=== PATIENT | male | born 1980 | race Caucasian/White ===

== ENCOUNTER 2018-02-12 23:30 | Emergency (ER) | payer BC ==
[2018-02-13] MEDS ORDERED: ONDANSETRON HCL INJ/PF 4 MG/2 ML SDV IV ONE (00:25)
[2018-02-13] MEDS ORDERED: MORPHINE SULFATE 10 MG/ML INJ IV ONE (00:25)
[2018-02-13 00:34] LABS: ABSOLUTE LYMPHOCYTES (AUTO) 1.4 10^3/uL (0.5-4.7); ABSOLUTE MONOCYTES (AUTO) 0.6 10^3/uL (0.1-1.4); ABSOLUTE NEUT (AUTO) 10.6 10^3/uL (1.7-8.2); BASOPHILS % (AUTO) 0.1 % (0-2); EOSINOPHILS % (AUTO) 0.1 % (0-6); HEMATOCRIT 50.8 % (37.9-51.0); HEMOGLOBIN 17.8 g/dL (13.5-17.0); MEAN CORPUSCULAR HEMOGLOBIN 32.7 pg (27.0-33.4); MEAN CORPUSCULAR VOLUME 93 fl (80-97); MONOCYTES % (AUTO) 5.1 % (3-13); PLATELET COUNT 205 10^3/uL (150-450); RED BLOOD COUNT 5.44 10^6/uL (4.35-5.55); RED CELL DISTRIBUTION WIDTH 12.7 % (11.5-14.0); SEGMENTED NEUTROPHILS % (AUTO) 83.7 % (42-78); TOTAL CELLS COUNTED % (AUTO) 100 %; WHITE BLOOD COUNT 12.7 10^3/uL (4.0-10.5)
--- NOTE | 2018-02-13 00:35 | ER Document Report ---
ED GI/ - General Mode of Arrival: Ambulatory Information source: Patient TRAVEL OUTSIDE OF THE [place] IN LAST 30 DAYS: No <MELA RODRIGUEZ - Last Filed: 02/13/18 02:58> <PEACE SAMSON - Last Filed: 02/13/18 03:46> - General Chief Complaint: Testicular Pain Stated Complaint: TESTICLE PAIN Time Seen by Provider: 02/13/18 00:08 Notes: 37-year-old male that presents to the emergency department today with complaints of sudden onset right testicular pain beginning tonight at 1999. Patient states he feels like the pain radiates from his right testicle up into the right lower quadrant. Patient states he has never had kidney stones in the past. Patient denies any penile discharge or concern for STD. Patient states the pain is making him nauseated and he has vomited. (MELA RODRIGUEZ) - Related Data Allergies/Adverse Reactions: No Known Allergies Allergy (Verified 12/23/11 12:04) Past Medical History - Social History Family History: Reviewed & Not Pertinent Past Surgical History: Reports: Hx Orthopedic Surgery - left foot - Immunizations Hx Diphtheria, Pertussis, Tetanus Vaccination: Yes - 2003 <MELA RODRIGUEZ - Last Filed: 02/13/18 02:58> - Social History Smoking Status: Unknown if Ever Smoked Cigarette use (# per day): No Chew tobacco use (# tins/day): No Family History: Reviewed & Not Pertinent - Medical History Medical History: Negative <PEACE SAMSON - Last Filed: 02/13/18 03:46> Review of Systems - Review of Systems Constitutional: No symptoms reported EENT: No symptoms reported Cardiovascular: No symptoms reported Respiratory: No symptoms reported Gastrointestinal: See HPI, Abdominal pain - RLQ, Nausea, Vomiting Genitourinary: denies: Flank pain Male Genitourinary: See HPI, Testicular pain - Right. denies: Penile discharge Musculoskeletal: No symptoms reported Skin: No symptoms reported Hematologic/Lymphatic: No symptoms reported Neurological/Psychological: No symptoms reported <MELA RODRIGUEZ - Last Filed: 02/13/18 02:58> Physical Exam - Vital signs Interpretation: Normal - General General appearance: Appears well, Alert - HEENT Head: Normocephalic, Atraumatic Eyes: Normal Pupils: PERRL - Respiratory Respiratory status: No respiratory distress Chest status: Nontender Breath sounds: Normal Chest palpation: Normal - Cardiovascular Rhythm: Regular Heart sounds: Normal auscultation Murmur: No - Abdominal Inspection: Normal Distension: No distension Bowel sounds: Normal Tenderness: Nontender Organomegaly: No organomegaly - Genitourinary Inspection: Normal Tenderness: Testicle tender - R. No: Lesions, Epididymis tender Cremasteric reflex: Normal Scrotum: Other - Back Back: Normal, Nontender - Extremities General upper extremity: Normal inspection, Nontender, Normal color, Normal ROM , Normal temperature General lower extremity: Normal inspection, Nontender, Normal color, Normal ROM , Normal temperature, Normal weight bearing. No: Domenico's sign - Neurological Neuro grossly intact: Yes Cognition: Normal Orientation: AAOx4 Mammoth Coma Scale Eye Opening: Spontaneous Jorge A Coma Scale Verbal: Oriented Mammoth Coma Scale Motor: Obeys Commands Jorge A Coma Scale Total: 15 Speech: Normal Motor strength normal: LUE, RUE, LLE, RLE Sensory: Normal - Psychological Associated symptoms: Normal affect, Normal mood - Skin Skin Temperature: Warm Skin Moisture: Dry Skin Color: Normal <PEACE SAMSON - Last Filed: 02/13/18 03:46> - Vital signs Vitals: Temp Pulse Resp BP Pulse Ox 97.0 F 98 18 190/110 H 99 02/12/18 23:38 02/12/18 23:38 02/12/18 23:38 02/12/18 23:38 02/12/18 23:38 Course - Laboratory Result Diagrams: 02/13/18 00:10 02/13/18 00:10 <MELA RODRIGUEZ - Last Filed: 02/13/18 02:58> - Laboratory Result Diagrams: 02/13/18 00:10 02/13/18 00:10 - Diagnostic Test Radiology reviewed: Reports reviewed <PEACE SAMSON - Last Filed: 02/13/18 03:46> - Re-evaluation Re-evalutation: 02/13/18 01:35 Patient updated 02/13/18 02:58 Patient updated and states he is pain free (MELA RODRIGUEZ) Patient is a 37-year-old male who comes in with sudden onset wrist testicular pain that began around 8:00. Ultrasound with no findings of torsion but patient does have a small calcification to follow-up on. More relevant, he is blood in his urine and a CT scan showing a right ureteral stone. This is consistent with symptoms. Patient has been given Zofran, morphine, Toradol for pain. Is completely resolved at this time. He is to follow-up with urology and return if any worsening or concerning symptoms. No evidence for infection. Understands agrees with plan. Stable for discharge. (PEACE SAMSON) - Vital Signs Vital signs: Temp Pulse Resp BP Pulse Ox 98.4 F 87 16 136/87 H 95 02/13/18 03:23 02/13/18 03:23 02/13/18 03:23 02/13/18 03:23 02/13/18 03:23 - Laboratory Laboratory results interpreted by me: 02/13/18 02/13/18 02/13/18 00:10 00:10 00:10 WBC 12.7 H Hgb 17.8 H Seg Neutrophils % 83.7 H Lymphocytes % 11.0 L Absolute Neutrophils 10.6 H Glucose 134 H Urine Protein 30 H Urine Ketones TRACE H Urine Blood LARGE H Discharge <MELA RODRIGUEZ - Last Filed: 02/13/18 02:58> <PEACE SAMSON - Last Filed: 02/13/18 03:46> - Discharge Clinical Impression: Ureteral calculus, right Condition: Stable Disposition: HOME, SELF-CARE Instructions: Kidney Stone ([facility]) Prescriptions: Ondansetron [Zofran Odt 4 mg Tablet] 1 - 2 tab PO Q4HP PRN #20 tab.rapdis PRN Reason: Ketorolac Tromethamine 10 mg PO BIDP PRN #20 tablet PRN Reason: Oxycodone HCl/Acetaminophen [Percocet 5-325 mg Tablet] 1 tab PO ASDIR PRN #15 tab PRN Reason: Forms: Return to Work, Elevated Blood Pressure Referrals: ANDRES SAENZ II, MD [JUNO ZARAGOZA] - Follow up as needed MAXI MARISCAL MD [JUNO ZARAGOZA] - Follow up as needed Scribe Attestation: 02/13/18 03:00 I personally performed the services described in the documentation, reviewed and edited the documentation which was dictated to the scribe in my presence, and it accurately records my words and actions. (PEACE SAMSON) Scribe Documentation - Scribe Written by Scribe:: Kirsty Choi, 02/13/2018 0149 acting as scribe for :: Artur <MELA RODRIGUEZ - Last Filed: 02/13/18 02:58>
[2018-02-13 00:41] LABS: ALANINE AMINOTRANSFERASE 49 U/L (21-72); ALBUMIN 4.9 g/dL (3.5-5.0); ALKALINE PHOSPHATASE 99 U/L (38-126); ANION GAP 15 (5-19); ASPARTATE AMINO TRANSFERASE 31 U/L (17-59); BILIRUBIN,DIRECT 0.3 mg/dL (0.0-0.4); BILIRUBIN,TOTAL 0.8 mg/dL (0.2-1.3); BLOOD UREA NITROGEN 18 mg/dL (7-20); CARBON DIOXIDE 26 mmol/L (22-30); CHLORIDE 100 mmol/L (98-107); GLUCOSE 134 mg/dL (75-110); POTASSIUM 4.5 mmol/L (3.6-5.0); SODIUM 141.1 mmol/L (137-145)
[2018-02-13 00:42] LABS: APPEARANCE,URINE SLIGHTLY-CLOUDY; BILIRUBIN,URINE NEGATIVE (NEGATIVE); COLOR,URINE YELLOW; GLUCOSE, URINE NEGATIVE (NEGATIVE); KETONES,URINE TRACE mg/dL (NEGATIVE); LEUKOCYTE ESTERASE,URINE NEGATIVE (NEGATIVE); NITRITE,URINE NEGATIVE (NEGATIVE); PROTEIN,URINE 30 mg/dL (NEGATIVE); URINE SPECIFIC GRAVITY 1.023; UROBILINOGEN,URINE NEGATIVE mg/dL (<2.0)
[2018-02-13] MEDS ORDERED: KETOROLAC TROMETHAMINE INJ/PF 30 MG/1 ML SDV IV ONE (01:33)
--- NOTE | 2018-02-13 01:38 | RADIOLOGY REPORT (SQ) ---
TESTICULAR ULTRASOUND CLINICAL HISTORY: 37-year-old male with testicular pain. TECHNIQUE: Multiple sonographic images are taken of the testicles using both grayscale and color Doppler. COMPARISON: None. FINDINGS: Right testis: The right testicle measures 2.6 x 3.9 x 2.1 cm. Testicular parenchyma contains a coarse calcification within the mid and lateral chest cysts. Blood flow to the right testis is within normal. The right epididymis 1.1 x 1.3 x 1.4 cm. Hydrocele is demonstrated with a small epididymal appendage versus cyst that measures 2.1 mm. Blood flow to the epididymis is within normal limits. There is no significant varicocele. There is a large hydrocele. Left testis: The left testis measures 3.0 x 4.4 x 2.2 cm The parenchyma is within normal limits. Blood flow is within normal. The left epididymis 1.3 x 1.0 x 1.1 cm. Epididymal cyst is seen measuring 4.1 x 4.0 x 5.4 mm.. Varicocele is demonstrated. There is no significant hydrocele. IMPRESSION: 1. Large right-sided hydrocele. 2. Calcification seen within the right testicular parenchyma. Short-term follow-up is recommended. 3. Bilateral epididymal cysts. 4. Left-sided varicocele.
--- NOTE | 2018-02-13 02:20 | RADIOLOGY REPORT (SQ) ---
EXAM DESCRIPTION: CT ABDOMEN WITHOUT IV CONTRAST COMPLETED DATE/TME: 02/13/2018 01:33 CLINICAL HISTORY: 37 years, Male, stone COMPARISON: None. TECHNIQUE: Axial CT images of the abdomen and pelvis were obtained without contrast. Sagittal and coronal reformats were performed. [facility] 1117 Images stored on PACS. All CT scanners at this facility use dose modulation, iterative reconstruction, and/or weight based dosing when appropriate to reduce radiation dose to as low as reasonably achievable (ALARA). [facility]: Dose Right [facility]: CareDose [facility]: Dose Right [facility]: Teradose 4D [facility]: [employer] LIMITATIONS: None. FINDINGS: The lung bases are clear. The liver, gallbladder, pancreas, spleen, and adrenal glands are unremarkable. There is a 5 mm stone within the distal right ureter causing mild to moderate hydroureter and hydronephrosis. There is an additional 3 mm stone along the lower pole of the right kidney. There is a 2 mm nonobstructing stone along the lower pole of the kidney. There is no intraperitoneal free air or fluid. There is no lymphadenopathy. The abdominal aorta is unremarkable. The stomach and small bowel are unremarkable. The appendix is not uniquely identified, however there are no laboratory changes within the right lower quadrant. The colon is incompletely distended. The urinary bladder and prostate gland are unremarkable. There are no lytic or blastic bone lesions. IMPRESSION: 5 mm stone within the distal right ureter causing mild to moderate right-sided hydroureter and hydronephrosis. Additional 3 mm stone along the lower pole of the right kidney. Nonobstructing left-sided nephrolithiasis TECHNICAL DOCUMENTATION: Quality ID # 436: Final reports with documentation of one or more dose reduction techniques (e.g., Automated exposure control, adjustment of the mA and/or kV according to patient size, use of iterative reconstruction technique) 2010 [employer]- All Rights Reserved
[2018-02-13] MEDS ORDERED: ONDANSETRON ODT 4 MG TAB (6 TAB/ER DISP) PO PRN (02:59)
[2018-02-13] MEDS ORDERED: HYDROCODONE/ACETAMINOPHEN 5-325 MG (6 TAB/ER DISP) PO PRN (02:59)
[2018-02-13 03:26] VITALS: BP 136/87
== END 2018-02-13 03:23 | disposition home or self-care (01) ==
LOC: ER 23:30
DX: N13.2 Hydronephrosis with renal and ureteral calculous obstruction (principal); N50.89 Other specified disorders of the male genital organs; N50.811 Right testicular pain; R11.2 Nausea with vomiting, unspecified; R10.31 Right lower quadrant pain
CPT/HCPCS: 99284; 96374; 96375; 36415; 85025; 80053; 81001; 76870; 93976; 76380; J1885; J2270; J2405

== ENCOUNTER 2020-06-29 01:27 | Emergency (ER) | payer BC ==
--- NOTE | 2020-06-29 01:48 | ER Document Report ---
ED General - General Chief Complaint: Laceration Stated Complaint: HEAD GASH Time Seen by Provider: 06/29/20 01:46 Primary Care Provider: ELIANA JOHNSON PA-C [Primary Care Provider] - Follow up as needed TRAVEL OUTSIDE OF THE [place] IN LAST 30 DAYS: No - HPI Context: Chief Complaint: [Scalp laceration] [39-year-old male presents to the emergency department with a curvilinear 14 cm laceration to the right side of the scalp that occurred at home when he was in his garage. Patient states he had bent down to pick something up and came up and hit his head on the edge of something sharp. Patient reportedly lost consciousness in route according to the patient's . Patient however is alert and oriented x4 at time of arrival. Patient's last tetanus shot was 6 years ago ] History obtained from [patient] Symptoms began:[1 hour prior to arrival] Onset: [Sudden] Timing: [Sudden] Quality: [Sharp] Intensity: [3] Location: [Scalp] Radiation: [Denies] [The pain does not migrate to a new location.] Aggravating factors: [none] Relieving factors: [none] [Denies] SOB [Denies] nausea [Denies] vomiting [Denies] sweats [Denies] fever [Denies] cough [Denies] calf or leg swelling or pain - Related Data Allergies/Adverse Reactions: No Known Allergies Allergy (Verified 12/23/11 12:04) Past Medical History - General Information source: Patient - Social History Smoking Status: Never Smoker Frequency of alcohol use: Occasional Drug Abuse: None Family History: Reviewed & Not Pertinent Patient has homicidal ideation: No Renal/ Medical History: Denies: Hx Peritoneal Dialysis Past Surgical History: Reports: Hx Orthopedic Surgery - left foot - Immunizations Hx Diphtheria, Pertussis, Tetanus Vaccination: Yes - 2003 Review of Systems - Review of Systems Notes: Review of systems as below unless otherwise stated in HPI. CONSTITUTIONAL [No] fever, [No] chills. EYES [No] eye pain. ENT [No] URI symptoms, [No] sore throat, [No] ear pain. CARDIOVASCULAR [No] chest pain, [No] palpitations, [No] edema. RESPIRATORY [No] Cough, [No] SOB, [No] wheezing. GASTROINTESTINAL [No] abdominal pain, [No] nausea, [No] Diarrhea, [No] Vomiting, [No] constipation, [No] melena, [No] rectal bleeding. GENITOURINARY [No] dysuria, [No] urinary frequency, [No] hematuria, [No] urinary urgency MUSCULOSKELETAL [No] Back pain. SKIN [No] Rash. Positive laceration NEUROLOGIC [No] Headache, [No] recent seizures, [No] paralysis,[No] parathesias. ENDOCRINE [No] polyuria. HEMO/LYMPATIC [No] easy brusing PSYCHIATRIC [No] depression. Physical Exam - Vital signs Vitals: Temp Pulse Resp BP Pulse Ox 97.9 F 119 H 20 146/78 H 100 06/29/20 02:24 06/29/20 02:24 06/29/20 02:24 06/29/20 02:24 06/29/20 02:24 - Notes Notes: CONSTITUTIONAL [Vital signs reviewed, Patient appears anxious and has obvious bleeding from his scalp, Alert and oriented X 3, HEAD Patient has a 14 cm curvilinear laceration present on his right scalp that is actively bleeding EYES [Eyes are normal to inspection, No discharge from eyes, Extraocular muscles intact, Sclera are normal, Conjunctiva are normal.] ENT [External ears normal to inspection, Nose examination normal, Mouth normal to inspection.] NECK [Normal ROM, No jugular venous distention, No meningeal signs, ] UPPER EXTREMITY [Inspection normal, No cyanosis, No clubbing, No edema, LOWER EXTREMITY [Inspection normal, No cyanosis, No clubbing, No edema, No calf tenderness, NEURO [No focal motor deficits, No focal sensory deficits, Speech normal.] SKIN [Skin is warm, Skin is dry, Skin is normal color. Scalp laceration as noted above] PSYCHIATRIC Anxious affect. ] Course - Re-evaluation Re-evalutation: 06/29/20 05:15 Results of ED MSE discussed with patient and patient's significant other. Patient was instructed to return in 7 days for removal of alhaji. All questions were answered prior to discharge. Emergency signs and symptoms, reasons to return to the emergency department discussed with patient and patient's significant other. - Vital Signs Vital signs: Temp Pulse Resp BP Pulse Ox 97.9 F 119 H 20 146/78 H 100 06/29/20 02:24 06/29/20 02:24 06/29/20 02:24 06/29/20 02:24 06/29/20 02:24 - Laboratory Results Critical Laboratory Results Reviewed: No Critical Results Attending or Supervising Physician who Reviewed Labs: JASON NYE IV - Radiology Results Critical Radiology Results Reviewed: No Critical Results Attending or Supervising Physician who Reviewed Radiology: JASON NYE IV Procedures - Laceration/Wound Repair Right Head Time completed: 01:30 Wound length (cm): 14 Wound's Depth, Shape: Linear Laceration pre-procedure: Sterile PPE donned Wound explored: Clean Wound Repaired With: Alhaji Number of Sutures: 11 Post-procedure NV exam normal: Yes Complications: No Discharge - Discharge Clinical Impression: Scalp laceration Qualifiers: Encounter type: initial encounter Qualified Code(s): S01.01XA - Laceration without foreign body of scalp, initial encounter Condition: Stable Disposition: HOME, SELF-CARE Instructions: Laceration Care ([facility]), Tetanus Immunization Given ([facility]) Additional Instructions: Return to the Emergency Department without delay if any worse. Return to the emergency department on 07/06/2020 for staple removal HOME CARE INSTRUCTIONS & INFORMATION: Thank you for choosing us for your medical needs. We hope you're satisfied with the care you received. After you leave, you must properly care for your problem and, at the same time, observe its progress. Any condition can change. Some illnesses can change rapidly over hours or days. If your condition worsens, return to the Emergency Department or see your physician promptly. ABOUT YOUR X-RAYS AND EKG'S: If you had an EKG or X-rays taken, they have been read by the Emergency Physician. The X-rays and EKG's will also be read by a Radiologist or Student Dean within 24 hours. If discrepancies are noted, you will be notified by telephone. Please be certain the ED has a correct telephone number & address where you can be reached. Also, realize that some fractures or abnormalities do not show up on initial X-rays. If your symptoms continue, see your physician. ABOUT YOUR LABORATORY TEST: If you had laboratory tests, the results have been reviewed by the Emergency Physician. Some test results (for example cultures) may not be available for several days. You will be contacted if any test result shows you need additional treatment. Please be certain the ED has a correct telephone number and address where you can be reached. ABOUT YOUR MEDICATIONS: You will receive instructions on how to take your medicine on the prescription label you receive. Additional information may be provided by the Pharmacy. If you have questions afterwards, call the ED for clarification or further instructions. Some prescribed medications may cause drowsiness. Do not perform tasks such as driving a car or operating machinery without consulting your Pharmacist. If you feel you need a refill of pain medication, your condition will need re-evaluation. Please do not call for a refill of any medication. ABOUT YOUR SIGNATURE: Signature of this document acknowledges to followin. Understanding that you received emergency treatment and that you may be released before al medical problems are known or treated. Please be certain the ED has a correct phone number & address where you can be reached. 2. Acknowledgement that you will arrange for follow-up care as recommended. 3. Authorization for the Emergency Physician to provide information to your follow-up Physician in order to maximize your care. AT ANY TIME, IF YOUR SYMPTOMS CHANGE SIGNIFICANTLY OR WORSEN OR YOU DEVELOP NEW SYMPTOMS, RETURN TO THE EMERGENCY DEPARTMENT IMMEDIATELY FOR RE-EVALUATION. OUR GOAL IS TO PROVIDE EXCELLENT MEDICAL CARE! WE HOPE THAT WE HAVE MET YOUR EXPECTATIONS DURING YOUR EMERGENCY DEPARTMENT VISIT AND THAT YOU FEEL YOU HAVE RECEIVED EXCELLENT CARE! Referrals: ELIANA JOHNSON PA-C [Primary Care Provider] - Follow up as needed
[2020-06-29 02:26] VITALS: BP 146/78
--- NOTE | 2020-06-29 04:05 | RADIOLOGY REPORT (SQ) ---
EXAM DESCRIPTION: Site: CT HEAD WITHOUT RP: CT HEAD WITHOUT IV CONTRAST CLINICAL HISTORY: 39 years Male; head injury; TECHNIQUE: Noncontrast CT head. All CT scans at this facility use dose modulation, iterative reconstruction, and/or weight based dosing when appropriate to reduce radiation dose to as low as reasonably achievable. COMPARISON: None. FINDINGS: Brain: Martin matter, white matter, ventricles, and cisterns are within normal limits. No acute hemorrhage or mass effect. Sinuses: Visualized portions of paranasal sinuses and mastoids are clear. Calvarium: Right parietal scalp injury. Skin alhaji are in place. There is a thin subgaleal hematoma. No acute calvarial fractures. No hyperdense foreign bodies. IMPRESSION: 1. No acute intracranial findings.
--- NOTE | 2020-06-29 04:09 | RADIOLOGY REPORT (SQ) ---
EXAM DESCRIPTION: Site: CT CERVICAL SPINE WITHOUT RP: CT CERVICAL SPINE WITHOUT IV CONTRAST CLINICAL HISTORY: 39 years Male; head trauma; TECHNIQUE: Noncontrast cervical spine CT with sagittal and coronal reconstructions. All CT scans at this facility use dose modulation, iterative reconstruction, and/or weight based dosing when appropriate to reduce radiation dose to as low as reasonably achievable. COMPARISON: None FINDINGS: Alignment is anatomic. Mild degenerative disc changes are noted in the lower cervical spine. Central canal is difficult to evaluate due to artifact. There is no acute fracture of the cervical spine. No epidural hematoma. IMPRESSION: 1. No acute cervical spine fracture or subluxation.
[2020-06-29] MEDS ORDERED: DIPH/PERTUSS(ACELL)/TETANUS VAC/PF 0.5 ML SYR (>=10YO) IM ONE (05:20)
== END 2020-06-29 05:29 | disposition home or self-care (01) ==
LOC: ER 01:27
DX: S01.01XA Laceration without foreign body of scalp, initial encounter (principal); W22.09XA Striking against other stationary object, initial encounter; Z23 Encounter for immunization
CPT/HCPCS: 70450; 72125; 90471; 90715; 99284